=== PATIENT | male | born 1945 | race Caucasian/White ===

== ENCOUNTER 2023-12-31 15:56 | Emergency (ER) | payer OTHER ==
[~2023-12-31] VITALS: Ht 175.3 cm; Wt 75.6 kg
[2023-12-31] MEDS ORDERED: PREDNISONE20 MG PO (18:53)
[2023-12-31 19:31] LABS: HEMATOCRIT 38.8 % (35.0-50.0); RBC 4.16 M/ul (4.3-5.7); RDW 14.3 (10.5-15.0)
[2023-12-31 19:34] LABS: BASOPHILS 1.1 % (0-2); EOSINOPHILS 1.9 % (0-6); LYMPHOCYTES 23.6 % (24-44); MCH 31.2 (27-36); MCHC 33.5 g/dl (30-36); MCV 93.4 fl (81-99); MONOCYTES 8.4 % (0-12); PLATELET COUNT 210 K/uL (140-440)
[2023-12-31 19:44] LABS: ALBUMIN 3.3 g/dL (3.4-5.0); BILIRUBIN, TOTAL 0.5 ng/dL (0.2-1.0); BUN/CREATININE RATIO 15.31 (6.0-28.6); CALCIUM 8.7 mg/dL (8.5-10.1); CREATININE, SERUM 1.11 mg/dL (0.70-1.30); MAGNESIUM 2.2 mg/dL (1.8-2.4); PROTEIN, TOTAL 6.6 g/dL (6.4-8.2)
[2023-12-31 20:45] VITALS: BP 139/81
[2023-12-31] MEDS ORDERED: methylPREDNISolone 4 MG HOME.PACK PO ONE (20:45)
[2024-01-02 10:16] LABS: CORTISOL,SERUM 1.3 ug/dL (())
== END 2023-12-31 20:45 | disposition home or self-care (01) ==
LOC: ED 15:56
PROVIDERS: Family Medicine
DX: L50.9 Urticaria, unspecified (principal); M35.3 Polymyalgia rheumatica; Z79.52 Long term (current) use of systemic steroids
CPT/HCPCS: 36415; 80053; 82533; 83735; 85025; 99283